=== PATIENT | female | born 1965 | race Caucasian/White ===

== ENCOUNTER → 2020-12-12 14:27 | Outpatient (CLI) | payer OTHER, SELFPAY ==
[2020-12-12 14:02] VITALS: BMI 24.7
[2020-12-15 16:08] LABS: Endomysial Antibody IgA Negative (Negative)
[2020-12-15 18:44] LABS: Immunoglobulin A 332 mg/dL (87-352); t-Transglutaminase IgA <2 U/mL (0-3)
== END ==
PROVIDERS: PCP Family Medicine; Referring Provider Surgery; Visit Provider Surgery
DX: R10.9 Unspecified abdominal pain (principal)
CPT/HCPCS: 36415; 82784; 83516; 86255